=== PATIENT | female | born 1975 | race Asian ===

== ENCOUNTER → 2019-04-20 | Day surgery (SDC) | payer OTHER ==
[~2019-04-20] MED LIST: CEFTRIAXONE SOD 1 GM/NS 50 ML 50 ML IV ONE; DEXAMETHASONE SOD PHOS INJ 4 MG/ML VIAL ONE; FAMOTIDINE20 MG PO; FENTANYL CITRATE/PF 100MCG/2 ML INJ ONE; IOPAMIDOL 610MG/1ML 300 MG/ML VIAL IV ONE; LIDOCAINE HCL 2% LOCAL INJ 5 ML SDV VIAL INJ ONE; MIDAZOLAM HCL 2 MG/2 ML VIAL ONE; OMEPRAZOLE40 MG PO; ONDANSETRON HCL INJ 2MG/ML 2ML 2 MG/ML VIAL ONE; PROPOFOL IV EMULSION 10 MG/ML 20 ML VIAL ONE; SEVOFLURANE INHAL SOLN 250 ML PEN BTL ONE
--- OUTSIDE RECORDS SUMMARY | 2019-04-20 05:14 | XMS REPORT | Clinical Summary ---
Author Author [facility] Organization [facility] Address Unknown Phone Unavailable Care Team Providers Care Heart Nurse Name Role Phone Va Allen MD PCP Allergies Comments Active Allergy Reactions Severity Noted Date Reported throat swelling. IV contrast only. Iodinated Contrast- Oral 01/22/2017 And Iv Dye Medications End Date Status Medication Sig Dispensed Refills Start Date Active atomoxetine (STRATTERA) Take 1 90 capsule 0 40 mg capsuleIndications: capsule by 8 Concentration deficit mouth daily. Active loratadine (CLARITIN) 10 Take one 40 tablet 1 mg tabletIndications: tablet by 9 Allergic state, sequela mouth daily as needed for allergies. Active loratadine (CLARITIN) 10 Take 1 tablet 30 tablet 0 mg tabletIndications: by mouth 9 Upper respiratory daily Please infection with cough and use congestion, Seasonal Slovak allergic rhinitis, label. unspecified trigger, PND (post-nasal drip) Active fluticasone propionate Use 2 Sprays 16 g 0 (FLONASE ALLERGY RELIEF) in each 9 50 mcg/actuation nasal nostril daily sprayIndications: Upper Please use respiratory infection Slovak with cough and label. congestion, Seasonal allergic rhinitis, unspecified trigger, PND (post-nasal drip) Active benzonatate (TESSALON Take 1-2 30 capsule 0 PERLES) 100 mg capsules by 9 capsuleIndications: Upper mouth every 8 respiratory infection hours as with cough and congestion needed for cough: Please use Slovak label. Active ibuprofen (MOTRIN) 600 mg Take 1 tablet 30 tablet 0 tabletIndications: by mouth 9 Malaise every 8 hours as needed for Pain .vietnamase label. Active predniSONE (DELTASONE) 50 Take 1 tablet 3 tablet 0 mg tabletIndications: by mouth 9 Contrast media allergy daily Please take one 50 mg tab [address], another 50 mg tab [address], and the third 50 mg tab one hour before the CT.. 01/06/2019 Discontinued ciclesonide (ZETONNA) 37 Use 1 spray 6.1 g 1 mcg/actuation nasal HFA to each 7 inhaler nostril daily . Auto sub for Fluticasone per P&T. 01/06/2019 Discontinued ferrous sulfate (IRON, Take 1 tablet 30 tablet 2 FERROUS SULFATE,) 325 mg by mouth 7 (65 mg iron) daily (with tabletIndications: Low breakfast). iron 01/06/2019 Discontinued multivitamin tablet Take 1 tablet 0 by mouth daily. 01/06/2019 Discontinued famotidine (PEPCID) 20 mg Take 1 tablet 60 tablet 0 tabletIndications: by mouth 2 7 Dyspepsia, Upper times daily. abdominal pain 10/06/2018 Discontinued cetirizine (ZYRTEC) 10 mg Take 1 tablet 90 tablet 1 tablet by mouth 7 daily. 01/06/2019 Discontinued fluticasone (FLONASE) 50 Use 2 Sprays 16 g 11 mcg/actuation nasal spray in each 7 nostril daily. 01/06/2019 Discontinued loratadine (CLARITIN) 10 Take 1 tablet 30 tablet 0 mg tabletIndications: by mouth 9 Upper respiratory daily Please infection with cough and use congestion, Seasonal Slovak allergic rhinitis, label. unspecified trigger, PND (post-nasal drip) 01/06/2019 Discontinued fluticasone propionate Use 2 Sprays 16 g 0 (FLONASE ALLERGY RELIEF) in each 9 50 mcg/actuation nasal nostril daily sprayIndications: Upper Please use respiratory infection Slovak with cough and label. congestion, Seasonal allergic rhinitis, unspecified trigger, PND (post-nasal drip) 01/06/2019 Discontinued benzonatate (TESSALON Take 1-2 30 capsule 0 PERLES) 100 mg capsules by 9 capsuleIndications: Upper mouth every 8 respiratory infection hours as with cough and congestion needed for cough: Please use Slovak label. 01/06/2019 Discontinued amoxicillin (AMOXIL) 500 Take 1 20 capsule 0 mg capsuleIndications: capsule by 9 Upper respiratory mouth 2 times infection with cough and daily for 10 congestion days Please use Slovak label. 01/06/2019 Discontinued ibuprofen (MOTRIN) 600 mg Take 1 tablet 30 tablet 0 tabletIndications: by mouth 9 Malaise every 8 hours as needed for Pain .vietnamase label. 01/16/2019 amoxicillin (AMOXIL) 500 Take 1 20 capsule 0 mg capsuleIndications: capsule by 9 Upper respiratory mouth 2 times infection with cough and daily for 10 congestion days Please use Slovak label. 02/10/2019 diphenhydrAMINE Take 2 2 capsule 0 (BENADRYL) 25 mg capsules by 9 capsuleIndications: mouth once Contrast media allergy for 1 dose Please take 50 mg [address] scan. Active Problems Problem Noted Date SOB (shortness of breath) 03/21/2017 Low iron 02/20/2017 Acquired nasal deformity 01/07/2014 DNS (deviated nasal septum): ssen ENT plan for surgery 12/09/2013 Allergic rhinitis, cause unspecified 03/06/2013 Depressive disorder, not elsewhere classified: stable on meds/seen Psych 07/31/201206/12 Sensation of foreign body in throat Encounters Care Team Description Date Type Specialty Franko Beckwith Interpretation 04/13/2019 Telephone Cindy Sanchez ResidentNV Contrast media allergy (Primary Dx) 02/10/2019 Orders Only Urology Franko Beckwith Interpretation 02/04/2019 Telephone Dhruv Cline MD Microscopic hematuria 02/03/2019 Hospital Radiology Encounter 02/03/2019 Travel Sandra Kohli, RN 01/29/2019 Nurse Triage Va Allen MD Microscopic hematuria 01/20/2019 Hospital Lab Encounter Dhruv Cline MD Microscopic hematuria (Primary Dx) 01/20/2019 Office Visit Urology Abbi Lu MD Larson, Scott, MD Epigastric pain (Primary Dx); Sensation of foreign body in throat 01/07/2019 Hospital Gastroenterology Encounter Franko Beckwith Interpretation 01/07/2019 Telephone Franko Beckwith Interpretation 01/07/2019 Telephone Jered Soto NP Upper respiratory infection with cough and congestion (Primary Dx); Seasonal allergic rhinitis, unspecified trigger; PND (post-nasal drip); Malaise 01/06/2019 Same Day Family Practice 01/06/2019 Va Maza MD 01/05/2019 Hospital Radiology Encounter 01/05/2019 Travel Franko Beckwith Interpretation 01/05/2019 Telephone Franko Bcekwith Interpretation 12/25/2018 Telephone Inna Scott, Saji() Other dysphagia (Primary Dx); Fecal urgency 12/16/2018 Office Visit Gastroenterology 12/16/2018 Va Maza MD Abnormal US (ultrasound) of abdomen (Primary Dx); Hematuria, unspecified type; Renal stone 11/25/2018 Office Visit Family Practice Franko Beckwith Interpretation 11/25/2018 Telephone Franko Beckwith Interpretation 11/25/2018 Telephone Sammie Lorenzo OD Refraction error (Primary Dx); Other chronic allergic conjunctivitis of both eyes 11/19/2018 Office Visit Ophthalmology Franko Beckwith Interpretation 11/19/2018 Telephone Va Allen MD 11/10/2018 Hospital Radiology Encounter 11/10/2018 Va Maza MD Abdominal pain, generalized (Primary Dx); Low mean corpuscular volume (MCV); Urine frequency; Allergic state, sequela 10/06/2018 Office Visit Family Practice Franko Beckwith Interpretation 10/06/2018 Telephone 10/06/2018 Va Maza MD Health care maintenance (Primary Dx); Pain 09/01/2018 Office Visit Family Practice Franko Beckwith Interpretation 09/01/2018 Telephone Franko Beckwith Interpretation 09/01/2018 Telephone 09/01/2018 Travel Kailee Cárdenas LVN Encounter for vaccination (Primary Dx) 08/28/2018 Nurse Only Franko Beckwith Interpretation 07/25/2018 Telephone after 04/19/2018 Immunizations Name Administration Dates Next Due Hepatitis B Vaccine 04/06/2015, 06/15/2013, 05/12/2013 06/12/2013 Influenza Vac (Fluarix) 11/02/2015 Influenza Vaccine 09/03/2013 Influenza Vaccine, 09/09/2017 Seasonal, Injectable Influenza, 08/28/2018 Vaccine<FLUCELVAX>(Multi- Dose) Tdap Tetanus, diphtheria, 01/21/2017 acellular pertussis Vaccine Family History Medical History Relation Name Comments Hypertension Paternal NO CAD, CANCER Grandmother Relation Name Status Comments Brother Alive Brother Alive Brother Alive Brother Alive Father Alive Mother Alive Paternal Grandmother Sister Alive Sister Alive Sister Alive Social History Date Tobacco Use Types Packs/Day Years Used Never Smoker Smokeless Tobacco: Never Used Tobacco Cessation: Counseling Given: No Drinks/Week oz/Week Comments Alcohol Use No Food Insecurity Answer Date Recorded Within the past 12 months, you worried that your Never true 09/01/2018 food would run out before you got money to buy more. Within the past 12 months, the food you bought Never true 09/01/2018 just didn't last and you didn't have money to get more. Sex Assigned at Date Recorded Not on file Industry Job Start Date Occupation Not on file Not on file Not on file Travel End Travel History Travel Start No recent travel history available. Last Filed Vital Signs Reading Time Taken Comments Vital Sign 118/76 01/20/2019 11:40 AM CDT Blood Pressure 68 01/20/2019 11:40 AM CDT Pulse 36.8 C (98.3 F) 01/20/2019 11:40 AM CDT Temperature 18 01/20/2019 11:40 AM CDT Respiratory Rate 99% 01/07/2019 3:15 PM CDT Oxygen Saturation - - Inhaled Oxygen Concentration 59.4 kg (131 lb) 01/20/2019 11:40 AM CDT Weight 154.9 cm (5' 1") 01/20/2019 11:40 AM CDT Height 24.75 01/20/2019 11:40 AM CDT Body Mass Index Plan of Treatment Health Maintenance Due Date Last Done Comments Breast Cancer Scrn 01/06/2020 01/05/2019, 02/04/2014 (Yearly) Cervical Cancer Scrn (3 01/22/2020 01/21/2017, 10/01/2012, 09/26/2012, Yrs) Additional history exists Implants Device Identifier Shelf Expiration Date Model / Serial / Lot Implanted Type Area Manufactur er 10/30/2021 [id number] / / [id number] Clip N/A: Abdomen Implanted: Qty: 1 on 12/31/2016 by Kelvin Briggs Jr., [facility] Procedures Comments Procedure Name Priority Date/Time Associated Diagnosis CREATININE Routine 01/20/2019 Microscopic hematuria 1:15 PM CDT URINE CULTURE Routine 01/20/2019 Microscopic hematuria 12:56 PM CDT URINALYSIS Routine 01/20/2019 Microscopic hematuria 12:30 PM CDT EGD Routine 01/07/2019 Other dysphagia 1:39 PM CDT Fecal urgency [facility] Routine 01/07/2019 1:39 PM CDT MAMMOGRAM BILAT SCREEN Routine 01/05/2019 [employer] care maintenance DIGITAL 4:00 PM CDT [facility] MICROSCOPIC Routine 11/25/2018 4:28 PM BOLT MACHINE OPERATOR URINALYSIS STAT 11/25/2018 Hematuria, unspecified 4:28 PM BOLT MACHINE OPERATOR type U/S ABDOMEN AUBREY 11/10/2018 Pain 1:12 PM BOLT MACHINE OPERATOR UA MICROSCOPIC Routine 10/06/2018 2:49 PM BOLT MACHINE OPERATOR URINE CULTURE Routine 10/06/2018 Abdominal pain, 2:49 PM BOLT MACHINE OPERATOR generalized URINALYSIS STAT 10/06/2018 Abdominal pain, 2:49 PM BOLT MACHINE OPERATOR generalized H. PYLORI STOOL AG Routine 09/08/2018 Pain 3:03 PM BOLT MACHINE OPERATOR VIT D, 25-HYDROXY Routine 09/08/2018 3:00 PM BOLT MACHINE OPERATOR SYPHILIS SCREEN FOR Routine 09/08/2018 INFECTION 3:00 PM BOLT MACHINE OPERATOR HIV-1/HIV-2 ROUTINE Routine 09/08/2018 SCREENING 3:00 PM BOLT MACHINE OPERATOR HEPATITIS PANEL Routine 09/08/2018 3:00 PM BOLT MACHINE OPERATOR T-TRANSGLUTAMINASE IGA Routine 09/01/2018 Pain 12:34 PM BOLT MACHINE OPERATOR LIPASE Routine 09/01/2018 Pain 12:34 PM BOLT MACHINE OPERATOR HEMOGLOBIN A1C Routine 09/01/2018 Health care maintenance 12:34 PM BOLT MACHINE OPERATOR THYROID STIMULATING Routine 09/01/2018 Health care maintenance HORMONE (TSH) 12:34 PM BOLT MACHINE OPERATOR FREE T4 Routine 09/01/2018 Health care maintenance 12:34 PM BOLT MACHINE OPERATOR LIPID PROFILE Routine 09/01/2018 Health care maintenance 12:34 PM BOLT MACHINE OPERATOR COMPREHENSIVE METABOLIC Routine 09/01/2018 Health care maintenance PANEL 12:34 PM BOLT MACHINE OPERATOR CBC/DIFF Routine 09/01/2018 Health care maintenance 12:34 PM BOLT MACHINE OPERATOR after 04/19/2018 Results * CREATININE (01/20/2019 1:15 PM CDT) Creatinine 0.60 0.6 - 1.2 mg/dL [facility] 1 GFR, Estimated >60 mL/min/1.73 m2 [facility] 1 eGFR If Africn >60 mL/min/1.73 m2 [facility] 1 Specimen Blood Performing Organization Address [facility] Phone Number MISYS [facility] 1 * URINE CULTURE (01/20/2019 12:56 PM CDT) Only the most recent of 2 results within the time period is included. Spec Clean catch urine [facility] Description MICROBIOLOGY Order Comments None [facility] MICROBIOLOG[facility] Culture Resembles mixed uro-genital [facility] MICROBIOLOGY nima Report Status Final 01/22/2019 [facility] MICROBIOLOGY Specimen Urine clean catch - Clean Catch [place] Performing Organization Address [facility] Phone Number MISYS [facility] MICROBIOLOGY BT MICROBIOLOGY * UA CHEMISTRIES (01/20/2019 12:30 PM CDT) Only the most recent of 3 results within the time period is included. Color Yellow [facility] 1 Clarity Clear [facility] 1 Specific 1.018 1.001 - 1.035 [facility] [place] [facility] 1 pH 5.0 5 - 8 [facility] 1 Protein Negative NEG [facility] 1 Glucose Negative NEG [facility] 1 Ketones Negative NEG [facility] 1 Bilirubin Negative NEG [facility] 1 Nitrate Negative NEG [facility] 1 Urobilinogen,Se <1.0 0.2 - 1.0 EU/dL [facility] mi-Qn MAIN-STATION 1 Leukocyte Trace (A) NEG [facility] 1 Occult Blood Negative NEG [facility] 1 RBC 1 0 - 4 /HPF [facility] 1 WBC 2 0 - 5 /HPF [facility] 1 Epithelial Cell 3 /HPF [facility] 1 Specimen Urine Performing Organization Address City/State/Zipcode Phone Number MISYS [facility] 1 * EGD (01/07/2019 1:39 PM CDT) TEXT Patient Name SAMMIE CHAVEZ Date of 1975 Record Number [id number] Date/Time of Procedure 01/07/2019, 1:39:00 PM Endoscopist Abbi Romero MD./Fellow Inna Scott INDICATIONS FOR EXAMINATION:Ab dominal pain, epigastric. History of H pylori gastritis s/p treatment, history of anemia, improved since HP treatment PROCEDURE PERFORMED: EGD - MODERATE SEDATION SAME PHYS/QHP 5/>YRS, EGD, diagnostic, EGDwith biopsy single/multiple INSTRUMENTS: [id number] LIMITATIONS:None TOLERANCE: Good VISUALIZATION:Good MEDICATIONS:Benadryl 25 mg IV, Fentanyl 100 mcg IVP, Versed 4 mg IVP ASA CLASSIFICATION:II ANALGESIA:Moderate Sedation PROCEDURE TECHNIQUE: The patient was brought into the endoscopy suite and placed in the left lateral decubitus position.Heart rate and rhythm, blood oxygen saturation, and blood pressure were monitored.Topical anesthesia was not applied. A plastic bite block was placed between the incisors.After adequate sedation, the gastroscope was introduced through the bite block and under direct visualization advanced through the hypopharynx and into the cervical esophagus.The scope was further advanced into the stomach and was insufflated with air.The pylorus was traversed and the scope advanced to duodenum. Upon withdrawal back into the stomach, the tip was retroflexed to examine the proximal stomach.At the conclusion of the exam, air was aspirated from the stomach and the scope withdrawn. FINDINGS: The upper, middle and lower esophagus were normal. The GE junction / z-line was noted around 36 cm from the incisors.Random biopsies for middle and distal esophagus taken to rule outEosinophilic Esophagitis obtained (Jar C). The stomach distended well with air insufflation. The stomach was easily entered. The antrum, angularis, greater and lesser curve and pylorus appeared unremarkable s/p random biopsies to rule out H pylori (Jar B). The pylorus was easily traversed. The dudoenal bulb and second portion unremarkable, with normal villi and normal duodenal folds s/p biopsies to rule out Celiac disease Retroflexed views were normal other than aforementioned erythema. The scope was then removed and the procedure terminated. ENDOSCOPIC DIAGNOSIS: 1. Normal esophagus s/p biopsies (Jar C). 2. Normal stomach s/p biopsies(Jar B). 3. Normal duodenal bulb and post bulbar duodenum s/p biopsies (Jar A) RECOMMENDATIONS: 1. Follow up biopsy results. 2. Treatment will be determined based on (1) 3. Follow up clinic as scheduled. 4. Patient was extremely anxious during the procedure and hard to sedate. Any future GI procedure should be with MAC COMPLICATIONS: None.. ESTIMATED BLOOD LOSS:None BLOOD PRODUCTS ADMINISTERED:None GRAFT/IMPLANT:None COMMENTS: CPT CODE: 11334 MODERATE SEDATION SAME PHYS/QHP 5/>YRS 50548 Esophagogastroduodenoscopy, flexible, transoral; diagnostic, including collection of specimen(s[place] [address] Esophagogastroduodenoscopy, flexible, transoral; with biopsy, single or multiple ICD CODE: R10.13 Epigastric pain R13.14 Dysphagia, pharyngoesophageal phase I was present during the entire viewing portion of theprocedure.I personally reviewed the images and report prepared by the resident or fellow and agree with the findings. Procedure completed. This Procedure was electronically signed of on : 01/28/2019 3:27:51 PM By Abbi Lu Specimen Performing Organization Address City/State/Zipcode Phone Number SMS * [facility] SURGICAL PATHOLOGY (01/07/2019 1:39 PM CDT) [facility] Surgical (note) MISYS Pathology Name SAMMIE CHAVEZ Date of 1975 Hospital Number [id number] Location [facility] Gastro Clinic SURGICAL PATHOLOGY Collected:01/07/2019 13:39 Received: 01/08/2019 06:47 ADDENDUM- IMMUNOHISTOCHEMISTRY Results-Comments B1. No helicobacter pylori identified (negative immunohistochemical stain, with appropriately reactive control). End of Addendum Report or Additional Results 01/19/2019 PATHOLOGIC DIAGNOSIS A. DUODENUM, BIOPSY: -- PEPTIC DUODENITIS B. STOMACH, RANDOM BIOPSY: -- ANTRAL AND FUNDIC GLAND MUCOSA WITH MILD CHRONIC INACTIVE GASTRITIS -- SEE NOTE NoteImmunohistochemical stain for helicobacter pylori is pending and the result will be reported in an addendum. C. ESOPHAGUS, BIOPSY: -- SQUAMOUS ESOPHAGEAL MUCOSA WITH MILD CHRONIC NONSPECIFIC ESOPHAGITIS -- NEGATIVE FOR INTRAEPITHELIAL EOSINOPHILS "I have personally reviewed the resident's preliminary interpretation and all specimen preparations and have personally issued this report." Pertinent Clinical Information Not provided. Tissue Submitted: Jar A:Duodenal biopsy. Jar B:Random gastric biopsy. Jar C:Esophagus biopsy. Gross Description Part A:Received in formalin labeled with the patient's name and medical record number and "DUODENAL BIOPSY".It consists of multiple pieces of parnell-pink soft tissue ranging from 0.2 cm to 0.5 cm which are submitted in toto in cassette A1. Part B:Received in formalin labeled with the patient's name and medical record number and "RANDOM GASTRIC BIOPSY".It consists of multiple pieces of parnell-pink soft tissue ranging from 0.2 cm to 0.5 cm which are submitted in toto in cassette B1. Part C:Received in formalin labeled with the patient's name and medical record number and "ESOPHAGUS BIOPSY".It consists of multiple pieces of pink-white soft tissue ranging from 0.3 cm to 0.5 cm which are submitted in toto in cassette C1. Harley Bentley/[id number] Beater Tender Microscopic Description A-C:A microscopic examination has been performed and the findings are incorporated in the diagnosis above. The positive and negative controls for all histochemical and immunohistochemical stains, if performed for this case, have been reviewed and, unless otherwise noted, have been found to be appropriate. Electronically Signed Out Andrea Mckee M.D./[id number] Staff Pathologist Specimen Performing Organization Address City/State/Zipcode Phone Number MISYS * MAMMOGRAM BILAT SCREEN DIGITAL (01/05/2019 4:00 PM CDT) Specimen Impressions Performed At IMPRESSION: BENIGN SMS There is no mammographic evidence of malignancy. A 1 year screening mammogram is recommended. This document has been electronically signed. Altagracia Gage M.D. ek/penrad:01/05/2019 16:13:25 Research Instructor: [facility] letter sent: Mammography Normal Mammogram BI-RADS: 2 Benign G0202 z12.31 Narrative Performed At #[id number] - MAMMOGRAM BILAT SCREEN DIGITAL SMS BILATERAL DIGITAL SCREENING MAMMOGRAM WITH CAD: 01/05/2019 CLINICAL: Screening. Comparison is made to exam dated:02/04/2014 [facility]. The tissue of both breasts is heterogeneously dense. This may lower the sensitivity of mammography. Current study was also evaluated with a Computer Aided Detection (CAD) system. There are benign appearing calcifications in the right breast. No significant masses, calcifications, or other findings are seen in either breast. There has been no significant interval change. Procedure Note Interface, Rad/Mammog In - 01/05/2019 4:45 PM CDT #[id number] - MAMMOGRAM BILAT SCREEN DIGITAL BILATERAL DIGITAL SCREENING MAMMOGRAM WITH CAD: 01/05/2019 CLINICAL: Screening. Comparison is made to exam dated: 02/04/2014 [facility]. The tissue of both breasts is heterogeneously dense. This may lower the sensitivity of mammography. Current study was also evaluated with a Computer Aided Detection (CAD) system. There are benign appearing calcifications in the right breast. No significant masses, calcifications, or other findings are seen in either breast. There has been no significant interval change. IMPRESSION IMPRESSION: BENIGN There is no mammographic evidence of malignancy. A 1 year screening mammogram is recommended. This document has been electronically signed. Altagracia Gage M.D. ek/penrad:01/05/2019 16:13:25 Research Instructor: [facility]: Mammography Normal Mammogram BI-RADS: 2 Benign G0202 z12.31 Performing Organization Address City/State/Zipcode Phone Number SMS * [facility] MICROSCOPIC (11/25/2018 4:28 PM BOLT MACHINE OPERATOR) Only the most recent of 2 results within the time period is included. WBC 0 to 1 0 - 5 /HPF [facility] RBC 4 to 10 0 - 4 /HPF [facility] Epithelial Cell <1 /HPF [facility] Bacteria Rare [facility] Mucous Present [facility] Specimen Performing Organization Address City/State/Zipcode Phone Number [facility] * U/S ABDOMEN (11/10/2018 1:12 PM BOLT MACHINE OPERATOR) Specimen Impressions Performed At IMPRESSION: SMS 1.Interval cholecystectomy with appropriate common bile duct diameter. 2.Tiny echogenic focus in the left lower to midportion that has twinkle artifact consistent with a small calculus. No collecting system dilatation is seen. Signed By: Vernon Bhardwaj MD, 11/10/2018 5:27 PM Narrative Performed At EXAM: US ABDOMEN COMPLETE SMS DATE: 11/10/2018 3:05 PM INDICATION: periumbilical pain on eating. Pain ADDITIONAL INFORMATION: None. COMPARISON: Abdominal ultrasound 03/20/2016 TECHNIQUE: Multiplanar grayscale and color Doppler ultrasound of the abdomen. FINDINGS: Liver: Craniocaudal length: 13.4 cm. Echogenicity: Mildly coarsened. Surface: Normal. Mass (size and location): None. Main portal vein: Caliber: 0.8 cm. Flow: Appropriate directional flow. Bile ducts: Common bile duct diameter: 0.8 cm. Intrahepatic ducts: Normal. Gallbladder: Surgically absent. Pancreas: Head and uncinate process: Obscured. Body: Normal. Tail: Not seen. Spleen: Size: 9.0 cm. Mass or focal lesion (size and location): None. Right kidney: Size: 10.1 cm. Hydronephrosis: None. Echogenicity: Normal. Calculi: None. Cysts/Masses: None. Left kidney: Size: 10.3 cm. Hydronephrosis: None. Echogenicity: Normal. Calculi: Tiny echogenic focus in the mid to lower pole measuring 0.3 x 0.3 x 0.3 cm.. There is twinkle artifact. Cysts/Masses: None. Duplicated collecting system. Abdominal aorta: Visible portions are normal. Inferior vena cava: Visible portions are normal. Free fluid: None. Other: None. Bladder: Unremarkable. Procedure Note Interface, Rad/Mammog In - 11/10/2018 5:33 PM BOLT MACHINE OPERATOR EXAM: US ABDOMEN COMPLETE DATE: 11/10/2018 3:05 PM INDICATION: periumbilical pain on eating. Pain ADDITIONAL INFORMATION: None. COMPARISON: Abdominal ultrasound 03/20/2016 TECHNIQUE: Multiplanar grayscale and color Doppler ultrasound of the abdomen. FINDINGS: Liver: Craniocaudal length: 13.4 cm. Echogenicity: Mildly coarsened. Surface: Normal. Mass (size and location): None. Main portal vein: Caliber: 0.8 cm. Flow: Appropriate directional flow. Bile ducts: Common bile duct diameter: 0.8 cm. Intrahepatic ducts: Normal. Gallbladder: Surgically absent. Pancreas: Head and uncinate process: Obscured. Body: Normal. Tail: Not seen. Spleen: Size: 9.0 cm. Mass or focal lesion (size and location): None. Right kidney: Size: 10.1 cm. Hydronephrosis: None. Echogenicity: Normal. Calculi: None. Cysts/Masses: None. Left kidney: Size: 10.3 cm. Hydronephrosis: None. Echogenicity: Normal. Calculi: Tiny echogenic focus in the mid to lower pole measuring 0.3 x 0.3 x 0.3 cm.. There is twinkle artifact. Cysts/Masses: None. Duplicated collecting system. Abdominal aorta: Visible portions are normal. Inferior vena cava: Visible portions are normal. Free fluid: None. Other: None. Bladder: Unremarkable. IMPRESSION IMPRESSION: 1. Interval cholecystectomy with appropriate common bile duct diameter. 2. Tiny echogenic focus in the left lower to midportion that has twinkle artifact consistent with a small calculus. No collecting system dilatation is seen. Signed By: Vernon Bhardwaj MD, 11/10/2018 5:27 PM Performing Organization Address City/[facility] Phone Number SMS * H. PYLORI STOOL AG (09/08/2018 3:03 PM BOLT MACHINE OPERATOR) H pylori Ag Negative LABORATORY Stool Reference range: Negative [employer] Specimen Stool Performing Organization Address City/[facility]/Zipcode Phone Number deeplocal OF [address] [facility] [place] [address] KELY 145 * SYPHILIS SCREEN FOR INFECTION (09/08/2018 3:00 PM BOLT MACHINE OPERATOR) Treponemal Ab Negative BT DIAGNOSTIC IMMUNOLOGY Final Report Negative BT DIAGNOSTIC IMMUNOLOGY Specimen Performing Organization Address City/[facility] Phone Number [employer] BT DIAGNOSTIC IMMUNOLOGY * VIT D, 25-HYDROXY (09/08/2018 3:00 PM BOLT MACHINE OPERATOR) Pathologist [facility] Vit D, 29.3 (L) 30 - 100 ng/mL BT DIAGNOSTIC 25-Hydroxy Comment: IMMUNOLOGY Vitamin D deficiency has been defined by the [place] of Medicine and Endocrine Society guideline as a level of serum 25-OH Vitamin D less than 20 ng/mL. The Endocrine Society further defines Vitamin D insufficiency as a level between 21 and 29 ng/mL and sufficiency as a level between 30 and 100 ng/mL. Specimen Performing Organization Address [facility] Phone Number [employer] BT DIAGNOSTIC IMMUNOLOGY * HIV-1/HIV-2 ROUTINE SCREENING (09/08/2018 3:00 PM BOLT MACHINE OPERATOR) Pathologist [facility] HIV-1/HIV-2 Negative NEG BT OUTPATIENT DRAW 2 Specimen Performing Organization Address [facility] Phone Number [facility] BT OUTPATIENT DRAW 2 * HEPATITIS PANEL (09/08/2018 3:00 PM BOLT MACHINE OPERATOR) Pathologist [facility] HCV IgG Negative NEG BT OUTPATIENT DRAW 2 HBsAg Negative NEG BT OUTPATIENT DRAW 2 HAV, IgM Negative NEG BT OUTPATIENT DRAW 2 HBcAb, IgM Negative NEG BT OUTPATIENT DRAW 2 Specimen Performing Organization Address [facility] Phone Number [employer] BT OUTPATIENT DRAW 2 * T-TRANSGLUTAMINASE IGA (09/01/2018 12:34 PM BOLT MACHINE OPERATOR) [facility] t-Transglutamin <2 LABORATORY ase (tTG) IgA Reference range: 0 to 3 CORPORATION OF Unit: U/mL KELY (note) Negative0 -3 Weak Positive 4 - 10 Positive >10 Tissue Transglutaminase (tTG) has been identified as the endomysial antigen.Studies have demonstr- ated that endomysial IgA antibodies have over 99% specificity for gluten sensitive enteropathy. Specimen Performing Organization Address [facility] Phone Number [employer] LABORATORY CORPOR[employer] OF [address] [facility] [place] [id number] KELY 145 * HEMOGLOBIN A1C (09/01/2018 12:34 PM BOLT MACHINE OPERATOR) Pathologist [facility] Hemoglobin A1c 5.4 4.3 - 6.1 % [employer] [facility] Est Average 108.3 mg/dL [employer] [facility] Gluc Specimen Blood Performing Organization Address [facility] Phone Number [employer] [facility] * COMPREHENSIVE METABOLIC PANEL(DBIL NOT INCLUDED) (09/01/2018 12:34 PM BOLT MACHINE OPERATOR) Albumin 4.4 3.7 - 5.3 g/dL BT MAIN-STATION 1 Calcium 9.8 8.6 - 10.3 mg/dL BT MAIN-STATION 1 CO2 29 21 - 31 mmol/L BT MAIN-STATION 1 Chloride 102 98 - 107 mmol/L BT MAIN-STATION 1 Creatinine 0.50 (L) 0.6 - 1.2 mg/dL BT MAIN-STATION 1 Glucose 90 70 - 110 mg/dL BT MAIN-STATION 1 Alkaline 53 34 - 104 U/L BT MAIN-STATION Phosphatase, S 1 Potassium 3.9 3.5 - 5.1 mmol/L BT MAIN-STATION 1 Sodium 141 136 - 145 mmol/L BT MAIN-STATION 1 ALT 10 7 - 52 U/L BT MAIN-STATION 1 AST (SGOT) 14 13 - 39 U/L BT MAIN-STATION 1 BUN 14 7 - 25 mg/dL BT MAIN-STATION 1 Bilirubin, 0.6 0.2 - 1.2 mg/dL BT MAIN-STATION Total 1 Protein, Total, 7.8 6.0 - 8.3 g/dL BT MAIN-STATION Serum 1 GFR, Estimated >60 mL/min/1.73 m2 BT MAIN-STATION 1 eGFR If Africn >60 mL/min/1.73 m2 BT MAIN-STATION Am 1 Anion Gap 10 BT MAIN-STATION 1 Specimen Blood Performing Organization Address [facility] Phone Number MISYS BT MAIN-STATION 1 * TSH (09/01/2018 12:34 PM BOLT MACHINE OPERATOR) TSH 1.01 0.57 - 3.74 uIU/mL BT MAIN-STATION 1 Specimen Blood Performing Organization Address [facility] Phone Number [facility]IS[employer] BT MAIN-STATION 1 * FREE T4 (09/01/2018 12:34 PM BOLT MACHINE OPERATOR) Free T4 0.84 0.61 - 1.18 ng/dl BT MAIN-STATION Comment: 1 females: 1st Trimester-0.52-1.10 ng/dL 2nd Trimester=0.45-0.99 ng/dL 3rd Trimester=0.48-0.95 ng/dL Specimen Blood Performing Organization Address [facility] Phone Number MISYS BT MAIN-STATION 1 * LIPID PROFILE (09/01/2018 12:34 PM BOLT MACHINE OPERATOR) Pathologist [facility] Cholesterol 183 mg/dL BT MAIN-STATION Comment: 1 REFERENCE RANGE: Desirable: <200 mg/dL Borderline: 200-240 mg/dL High Risk: >240 mg/dL Triglyceride 98 <150 mg/dL BT MAIN-STATION Comment: 1 REFERENCE RANGE: Normal: <150 mg/dL Borderline High: 150-199 mg/dL High: 200-499 mg/dL Very High: >ks=775 mg/dL HDL 58 mg/dL BT MAIN-STATION Comment: 1 Increased CHD risk: <40 mg/dL Decreased CHD risk: >60 mg/dL LDL 105 mg/dL BT MAIN-STATION Comment: 1 REFERENCE RANGE: Optimal: <100 mg/dL Near Optimal: 100-129 mg/dL Borderline High: 130-159 mg/dL High: 160-189 mg/dL Very High: >bh=484 mg/dL Specimen Blood Performing Organization Address City/[facility] Phone Number MISYS MAIN-STATION 1 * LIPASE (09/01/2018 12:34 PM BOLT MACHINE OPERATOR) Pathologist [facility] Lipase 26 11 - 82 U/L MAIN-STATION 1 Specimen Blood Performing Organization Address City/[facility] Phone Number MISYS MAIN-STATION 1 * CBC/DIFF (09/01/2018 12:34 PM BOLT MACHINE OPERATOR) [facility] WBC 4.8 4.5 - 11.0 K/uL [facility] RBC 5.04 4.20 - 5.40 M/uL [facility] Hemoglobin 13.2 12.0 - 16.0 g/dL [facility] Hematocrit 41.0 37.0 - 47.0 % [facility] MCV 81 (L) 82 - 92 fL [facility] MCH 26.2 (L) 27.0 - 32.0 pg [facility] MCHC 32.2 32.0 - 36.0 g/dL [facility] RDW 44.0 36.4 - 46.3 fL [facility] Platelets 202 150 - 400 K/uL [facility] Neutrophils 41.3 34.0 - 70.0 % [facility] Lymphs 46.4 20.0 - 50.0 % [facility] Monocytes 7.3 5.0 - 12.0 % [facility] Eos 4.2 0.7 - 5.0 % [facility] Basos 0.8 0.1 - 1.2 % [facility] Neutrophils 1.97 1.56 - 6.13 K/uL [facility] (Absolute) Lymphs 2.22 1.18 - 3.74 K/uL [facility] (Absolute) Monocytes(Absol 0.35 0.24 - 0.36 K/uL [facility] jaymie) Eos (Absolute) 0.20 0.04 - 0.36 K/uL [facility] Baso (Absolute) 0.04 0.01 - 0.08 K/uL [facility] Specimen Blood Performing Organization Address City/State/Zipcode Phone Number [facility] after 04/19/2018 Insurance Type Payer Benefit Subscriber ID Effective Phone Address Plan / Dates Group Vennli xxxxxxxxxx 2018-P [phone] [address] [employer] resent [address] [place] [address] Advance Directives Date Inactivated Comments Code Status Date Activated 11/02/2015 3:51 PM Full Code 10/31/2015 5:11 PM
--- OUTSIDE RECORDS SUMMARY | 2019-04-20 05:15 | XMS REPORT ---
Author Author [facility] Address Unknown Phone Unavailable Care Team Providers Care Paving Inspector Name Role Phone Unavailable Unavailable Problems This patient has no known problems. Allergies, Adverse Reactions, Alerts This patient has no known allergies or adverse reactions. Medications This patient has no known medications. Encounters Start Date/Time End Date/Time Encounter Type Admission Type Attending [facility] Care Department Encounter ID 2019-03-31 00:00:00 2019-03-31 00:00:00 Outpatient [facility] [id number] 2019 00:00:00 2019 00:00:00 Outpatient [facility] [id number] 2019-02-10 00:00:00 2019-02-10 00:00:00 Outpatient [facility] [id number] 2019-02-03 00:00:00 2019-02-03 00:00:00 Outpatient [facility] [id number] 2019-01-20 12:56:46 2019-01-20 12:56:46 Outpatient [facility] [id number] 2019-01-20 11:40:48 2019-01-20 11:40:48 Outpatient [facility] [id number] 2019-01-12 00:00:00 2019-01-12 00:00:00 Outpatient [facility] [id number] 2019-01-09 00:00:00 2019-01-09 00:00:00 Outpatient [facility] [id number] 2019-01-07 12:50:35 2019-01-07 12:50:35 Outpatient [facility] [id number] 2019-01-06 18:03:24 2019-01-06 18:03:24 Outpatient [facility] [id number] 2019-01-06 00:00:00 2019-01-06 00:00:00 Outpatient [facility] [id number] 2019-01-05 14:59:58 2019-01-05 14:59:58 Outpatient [facility] [id number] 2019-01-05 00:00:00 2019-01-05 00:00:00 Outpatient [facility] [id number] 2019-01-02 00:00:00 2019-01-02 00:00:00 Outpatient [facility] [id number] 2018-12-16 15:08:56 2018-12-16 15:08:56 Outpatient [facility] [id number] 2018-12-01 00:00:00 2018-12-01 00:00:00 Outpatient [facility] [id number] 2018-11-25 15:36:34 2018-11-25 15:36:34 Outpatient [facility] [id number] 2018-11-19 14:53:42 2018-11-19 14:53:42 Outpatient [facility] [id number] 2018-11-10 11:16:23 2018-11-10 11:16:23 Outpatient [facility] [id number] 2018-10-06 13:03:43 2018-10-06 13:03:43 Outpatient [facility] [id number] 2018-09-02 00:00:00 2018-09-02 00:00:00 Outpatient [facility] [id number] 2018-09-01 09:28:36 2018-09-01 09:28:36 Outpatient [facility] [id number] 2018-08-28 11:38:19 2018-08-28 11:38:19 Outpatient [facility] [id number] 2018-08-25 00:00:00 2018-08-25 00:00:00 Outpatient [facility] [id number] 2018-07-29 00:00:00 2018-07-29 00:00:00 Outpatient [facility] [id number] 2017-11-18 00:00:00 2017-11-18 00:00:00 Outpatient [facility] [id number] 2017-10-21 12:30:23 2017-10-21 12:30:23 Outpatient [facility] [id number] 2017-10-15 00:00:00 2017-10-15 00:00:00 Outpatient [facility] [id number] 2017-09-19 00:00:00 2017-09-19 00:00:00 Outpatient [facility] [id number] 2017-09-09 15:28:34 2017-09-09 15:28:34 Outpatient [facility] [id number] 2017-08-28 00:00:00 2017-08-28 00:00:00 Outpatient [facility] [id number] 2017-08-21 13:40:56 2017-08-21 13:40:56 Outpatient [facility] [id number] 2017-08-15 00:00:00 2017-08-15 00:00:00 Outpatient [facility] [id number] 2017-08-13 11:35:31 2017-08-13 11:35:31 Outpatient [facility] [id number] 2017-08-01 00:00:00 2017-08-01 00:00:00 Outpatient [facility] [id number] 2017-07-23 15:35:19 2017-07-23 15:35:19 Outpatient [facility] [id number] 2017-07-22 00:00:00 2017-07-22 00:00:00 Outpatient [facility] [id number] 2017-07-01 00:00:00 2017-07-01 00:00:00 Outpatient [facility] [id number] 2017-06-17 00:00:00 2017-06-17 00:00:00 Outpatient [facility] [id number] 2017-06-10 15:04:52 2017-06-10 15:04:52 Outpatient [facility] [id number] 2017-05-13 00:00:00 2017-05-13 00:00:00 Outpatient [facility] [id number] 2017-04-25 13:09:45 2017-04-25 13:09:45 Outpatient [facility] [id number] 2017-04-09 09:13:07 2017-04-09 09:13:07 Outpatient [facility] [id number] 2017-04-03 00:00:00 2017-04-03 00:00:00 Outpatient [facility] [id number] 2017-03-28 15:29:28 2017-03-28 15:29:28 Outpatient [facility] [id number] 2017-03-26 00:00:00 2017-03-26 00:00:00 Outpatient [facility] [id number] 2017-03-22 02:41:13 2017-03-22 02:41:13 Emergency [facility] [id number] 2017-03-21 21:20:21 2017-03-21 21:20:21 Emergency [facility] [id number] 2017-03-12 00:00:00 2017-03-12 00:00:00 Outpatient [facility] [id number] 2017-02-26 15:05:20 2017-02-26 15:05:20 Outpatient [facility] [id number] 2017-02-20 12:42:14 2017-02-20 12:42:14 Outpatient [facility] [id number] 2017-02-11 12:32:40 2017-02-11 12:32:40 Outpatient [facility] [id number] 2017-02-11 11:10:25 2017-02-11 11:10:25 Outpatient [facility] [id number] 2017-01-29 17:03:50 2017-01-29 17:03:50 Outpatient [facility] [id number] 2017-01-29 16:05:00 2017-01-29 16:05:00 Outpatient [facility] [id number] 2017-01-23 14:32:18 2017-01-23 14:32:18 Outpatient [facility] [id number] 2017-01-22 14:55:06 2017-01-22 14:55:06 Emergency [facility] [id number] 2017-01-22 13:25:53 2017-01-22 13:25:53 Outpatient [facility] [id number] 2017-01-22 00:00:00 2017-01-22 00:00:00 Outpatient [facility] [id number] 2017-01-21 13:59:15 2017-01-21 13:59:15 Outpatient [facility] [id number] 2017-01-21 00:00:00 2017-01-21 00:00:00 Outpatient [facility] [id number] 2017-01-16 13:53:27 2017-01-16 13:53:27 Outpatient [facility] [id number] 2017-01-07 15:44:39 2017-01-07 15:44:39 Outpatient [facility] [id number] 2017-01-07 14:28:43 2017-01-07 14:28:43 Outpatient [facility] [id number] 2016-12-31 09:10:00 2016-12-31 09:10:00 Outpatient [facility] [id number] 2016-12-31 00:00:00 2016-12-31 00:00:00 Outpatient [facility] [id number] 2016-12-19 09:14:02 2016-12-19 09:14:02 Outpatient [facility] [id number] 2016-12-19 00:00:00 2016-12-19 00:00:00 Outpatient [facility] [id number] 2016-12-04 12:45:58 2016-12-04 12:45:58 Outpatient [facility] [id number] 2016-12-04 08:57:54 2016-12-04 08:57:54 Outpatient [facility] [id number]
[2019-04-20 08:30] VITALS: BP 108/62
--- NOTE | 2019-04-20 13:00 | Operative Report ---
DATE OF PROCEDURE: 04/20/2019 SURGEON: Jamarcus Escobar MD PREOPERATIVE DIAGNOSES: 1. Gross hematuria. 2. Multiple chronic urinary tract infections. 3. Clinical signs and symptoms of interstitial cystitis. POSTOPERATIVE DIAGNOSES: 1. Gross hematuria. 2. Multiple chronic urinary tract infections. 3. Clinical signs and symptoms of interstitial cystitis. 4. Vaginal atrophy. PROCEDURES: 1. Cystourethroscopy with hydrodistention (entirely separate procedure for diagnosis of clinical signs and symptoms of interstitial cystitis without hematuria). 2. Cystourethroscopy with left ureteral catheterization and left retrograde pyelogram (separate procedure for gross hematuria). 3. Cystourethroscopy with right ureteral catheterization and right retrograde pyelogram (separate procedure for gross hematuria). 4. Supervision of fluoroscopy. 5. Interpretation of retrograde pyelography. ANESTHESIA: General. ESTIMATED BLOOD LOSS: Minimal. COMPLICATIONS: None. INDICATIONS FOR PROCEDURE: Ms. Sifuentes is a very pleasant 44-year-old female with a history of gross hematuria. She and I had a long discussion about alternatives, risks, and benefits of doing nothing, cystoscopy, IVP, retrograde pyelograms, and ultrasounds. She voiced understanding of the options, alternatives, risks, and benefits and elected to proceed. PROCEDURE IN DETAIL: After informed consent was obtained, the patient was taken to the operative suite, placed supine on the operating table, underwent general anesthesia by the Anesthesia Service. She was placed in the dorsal lithotomy position, sterilely prepped and draped in standard fashion for cystoscopy. A 21-Iranian cystoscope was inserted per urethra. Of note, there was vaginal atrophy with grade 2 cystocele. Panendoscopy of bladder revealed no tumors, no stones. Both ureteral orifices were in normal anatomic location and position and were seen to efflux clear urine. Bilateral retrograde pyelogram was performed, which were normal. The bladder was drained. The patient was awakened from anesthesia and transported to the recovery room in excellent condition. Supervision of fluoroscopy and interpretation of retrograde pyelography: I was present for the entire procedure and supervised the use of fluoroscopy, there was no radiologist present. Attention was turned towards the left and right ureteral orifices, which were catheterized with an 8-Iranian cone-tipped catheter. In retrograde fashion, contrast was injected revealing delicate ureter, delicate pelvocaliceal systems. No evidence of filling defects. No evidence of hydronephrosis. IMPRESSION: Normal retrograde pyelograms. MD MAKAYLA Evans/OLGAL /[id number]
== END | disposition home or self-care (01) ==
LOC: OR 05:06
PROVIDERS: ATTEND Urology
DX: N39.0 Urinary tract infection, site not specified (principal); R31.0 Gross hematuria; R35.1 Nocturia; R10.30 Lower abdominal pain, unspecified; N39.41 Urge incontinence; Z91.041 Radiographic dye allergy status; K21.9 Gastro-esophageal reflux disease without esophagitis; F41.9 Anxiety disorder, unspecified; N95.2 Postmenopausal atrophic vaginitis; N81.10 Cystocele, unspecified
CPT/HCPCS: 52005; 74420; 81025; C1758; J0696; J1100; J2001; J2250; J2405; J2704; J3010; Q9967